=== PATIENT | female | born 1990 | race Caucasian/White ===

== ENCOUNTER 2016-12-03 22:58 | Emergency (ER) | payer OTHER ==
[~2016-12-03] VITALS: Ht 170.2 cm; Wt 90.7 kg
[2016-12-04] MEDS ORDERED: PROGESTERONE100 MG PO (01:55)
[2016-12-04] MEDS ORDERED: ZOLOFT100 MG PO (01:55)
== END 2016-12-04 03:25 | disposition short-term general hospital (02) ==
LOC: ER 22:58 → ULTR 23:40 → ER 12-04 03:25
DX: O26.851 Spotting complicating pregnancy, first trimester (principal); Z3A.01 Less than 8 weeks gestation of pregnancy; Z88.1 Allergy status to other antibiotic agents; Z79.899 Other long term (current) drug therapy
CPT/HCPCS: 87660